=== PATIENT | male | born 1970 | race Two or more races ===

== ENCOUNTER 2018-06-17 23:32 | Emergency (ER) | payer MEDICAID ==
[~2018-06-17] VITALS: Ht 172.7 cm; Wt 68.0 kg
--- NOTE | 2018-06-17 23:37 | NUR ---
ED Nurse Note: Patient felipatiburcio RA 30 from the [facility] c/o 11/20 generalized body pain for 3 weeks, patient reports nausea. AO4. NAD. VSS
[2018-06-17 23:39] VITALS: BP 142/88
[2018-06-17 23:45] VITALS: BP 142/88
--- NOTE | 2018-06-17 23:45 | NUR ---
Homeless Discharge: Patient is being discharged from medical care. Awake, alert and oriented x4. After care instructions, including referral to community resources were given; PATIENT REFUSED. Patient verbalized understanding of After care instructions; PATIENT REFUSED AND LEFT WITHOUT DISCHARGE PAPERS. ID BAND REMOVED. OFFERED FOODAND WATER; PATIENT REFUSED. OFFERED TRANSPORTATION TO DESTINATION; PATIENT REFUSED TO DISCLOSE LOCATION AND. Patient ambulated out with all personal belongings with steady gait.
--- NOTE | 2018-06-17 23:58 | Emergency Room Report ---
History of Present Illness General Chief Complaint: Pain Source: Patient Present Illness HPI Is a 47-year-old male with no significant past medical history. He presents with chief complaint of body pain. This is a chronic problem going for months. He has been to multiple ERs for this. He was at [facility] a couple days ago. He said they ran tests and everything was normal. He was given pain medication. He called 911 because body pain. Pain is 10 out of 10. He said that his pain is secondary to radiation. He did not have any cancer history or undergo chemotherapy or radiation. Denies any other complaint. Nothing made it better. Nothing made it worse. Allergies: Coded Allergies: No Known Allergies (Unverified , 06/17/18) Patient History Past Medical History: see triage record, old chart reviewed Past Surgical History: none Pertinent Family History: none Social History: Denies: smoking Immunizations: other Reviewed Nursing Documentation: PMH: Agreed; PSxH: Agreed Nursing Documentation-PMH Past Medical History: No Stated History Review of Systems Eye: Denies: eye pain, blurred vision ENT: Denies: ear pain, nose congestion, throat swelling Respiratory: Denies: cough, shortness of breath Cardiovascular: Denies: chest pain, palpitations Gastrointestinal: Denies: abdominal pain, diarrhea, nausea, vomiting Musculoskeletal: Denies: back pain, joint pain Skin: Denies: rash Neurological: Denies: headache, numbness Endocrine: Denies: increased thirst, increased urine Hematologic/Lymphatic: Denies: easy bruising All Other Systems: negative except mentioned in HPI Physical Exam Vital Signs Date Time Temp Pulse Resp B/P (MAP) Pulse Ox O2 Delivery O2 Flow Rate FiO2 06/17/18 23:32 98.6 84 18 99 Room Air 06/17/18 23:39 142/88 vitals normal Sp02 EP Interpretation: reviewed, normal General Appearance: well appearing, no apparent distress, alert Head: normocephalic, atraumatic Eyes: bilateral eye PERRL, bilateral eye EOMI ENT: hearing grossly normal, normal pharynx Neck: full range of motion, supple, no meningismus Respiratory: chest non-tender, lungs clear, normal breath sounds Cardiovascular #1: regular rate, rhythm, no murmur Gastrointestinal: normal bowel sounds, non tender, no mass, no organomegaly, no bruit, non-distended Musculoskeletal: back normal, gait/station normal, normal range of motion Psychiatric: mood/affect normal Skin: warm/dry Medical Decision Making Diagnostic Impression: Primary Impression: Pain ER Course Patient resents with chronic pain. I see no need for any workup. Patient is asking for x-rays and CT scans. Explained to him that is with give him more radiation. He arty had but work done x-ray done 2 days ago. I see no need to repeat. Patient was not happy with this and got up and left. Last Vital Signs Date Time Temp Pulse Resp B/P (MAP) Pulse Ox O2 Delivery O2 Flow Rate FiO2 06/17/18 23:39 98.6 84 18 142/88 99 Room Air Status: unchanged Disposition: HOME, SELF-CARE Condition: Stable Scripts No Active Prescriptions or Reported Meds Referrals: NOT CHOSEN IPA/,REFERRING (PCP) Christiano Fisher MD June 17, 2018 23:58
== END 2018-06-17 23:55 | disposition home or self-care (01) ==
LOC: EDBD 23:32 → EMR 23:54
DX: G89.29 Other chronic pain (principal)
CPT/HCPCS: 99281

== ENCOUNTER 2018-06-24 21:33 | Emergency (ER) | payer MEDICAID ==
[~2018-06-24] VITALS: Ht 180.3 cm; Wt 76.7 kg
--- NOTE | 2018-06-24 21:41 | NUR ---
ED Nurse Note: pt brought in by [facility] from [facility] c/o dizziness and neck pain, pt reports he has been having problems for three days, states he has illness. Per ems report, pt has hx dm but noncompliant with medication. BS 125 at the bedside. pt AA&ox4, gcs=15, skin warm and dry, resp even and unlabored on RA, -n/v/d, ambulates w/ steady gait, vss, NSR on desk monitor. pt homeless, pt refused to do minicog.
[2018-06-24 21:42] VITALS: BP 140/92
--- NOTE | 2018-06-24 21:49 | Emergency Room Report ---
History of Present Illness General Chief Complaint: Dizziness Source: Patient Present Illness HPI Is a 47-year-old male who is homeless. He presents with chief complaint of dizziness. He said that his been drinking and "passed out. No trauma. [place] the [place] 911. EMS said he got up and walked to the [place] without any difficulty. I saw this patient last week. He complaining of multiple elements. Said that his whole body hurts. 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 Denies any focal deficit. No nausea no vomiting. No fever chills. Denies any other complaint. Allergies: Coded Allergies: No Known Allergies (Unverified , 06/24/18) Patient History Past Medical History: see triage record, old chart reviewed Past Surgical History: none Pertinent Family History: none Social History: Reports: alcohol use; Denies: smoking Immunizations: other Reviewed Nursing Documentation: PMH: Agreed; PSxH: Agreed Nursing Documentation-PMH Hx Hypertension: Yes Hx Diabetes: Yes Review of Systems Eye: Denies: eye pain, blurred vision ENT: Denies: ear pain, nose congestion, throat swelling Respiratory: Denies: cough, shortness of breath Cardiovascular: Denies: chest pain, palpitations Gastrointestinal: Denies: abdominal pain, diarrhea, nausea, vomiting Musculoskeletal: Denies: back pain, joint pain Skin: Denies: rash Neurological: Reports: dizziness; Denies: headache, numbness Endocrine: Denies: increased thirst, increased urine Hematologic/Lymphatic: Denies: easy bruising All Other Systems: negative except mentioned in HPI Physical Exam Vital Signs Date Time Temp Pulse Resp B/P (MAP) Pulse Ox O2 Delivery O2 Flow Rate FiO2 06/24/18 21:35 98.1 56 16 97 Room Air 06/24/18 21:42 140/92 vitals unremarkable Sp02 EP Interpretation: reviewed, normal General Appearance: well appearing, no apparent distress, alert Head: normocephalic, atraumatic Eyes: bilateral eye PERRL, bilateral eye EOMI ENT: hearing grossly normal, normal pharynx Neck: full range of motion, supple, no meningismus Respiratory: chest non-tender, lungs clear, normal breath sounds Cardiovascular #1: regular rate, rhythm, no murmur Gastrointestinal: normal bowel sounds, non tender, no mass, no organomegaly, no bruit, non-distended Musculoskeletal: back normal, gait/station normal, normal range of motion Psychiatric: mood/affect normal Skin: warm/dry Medical Decision Making Diagnostic Impression: Primary Impression: Dizziness of unknown cause ER Course This patient presents with dizziness. No focal deficit. He is walking around without any difficulty. We'll discharge home. Rhythm Strip Diag. Results EP Interpretation: yes Rate: 67 Rhythm: NSR, no PVC's, no ectopy, other Last Vital Signs Date Time Temp Pulse Resp B/P (MAP) Pulse Ox O2 Delivery O2 Flow Rate FiO2 06/24/18 21:42 68 16 Room Air 06/24/18 21:42 98.1 140/92 99 Status: improved Disposition: HOME, SELF-CARE Condition: Stable Patient Instructions: Dizziness Additional Instructions: Abstain from alcohol and drugs. Follow-up with your doctor in 7 days. Return if worse. Christiano Fisher MD June 24, 2018 21:49
[2018-06-24 22:28] LABS: BASOPHILS % (AUTO) 1.6 % (0.0-2.0); EOSINOPHILS % (AUTO) 5.9 % (0.0-3.0); HEMATOCRIT 37.4 % (42.0-52.0); HEMOGLOBIN 13.1 G/DL (14.2-18.0); LYMPHOCYTES % (AUTO) 37.4 % (20.0-45.0); MEAN CORPUSCULAR VOLUME 86 FL (80-99); MONOCYTES % (AUTO) 7.7 % (1.0-10.0); NEUTROPHILS % (AUTO) 47.5 % (45.0-75.0); PLATELET COUNT 284 K/UL (150-450); RED BLOOD COUNT 4.36 M/UL (4.70-6.10); RED CELL DISTRIBUTION WIDTH 11.9 % (11.6-14.8); WHITE BLOOD COUNT 6.4 K/UL (4.8-10.8)
[2018-06-24 22:40] LABS: ANION GAP 4 mmol/L (5-15); BLOOD UREA NITROGEN 20 mg/dL (7-18); CARBON DIOXIDE 29 MMOL/L (21-32); CHLORIDE 105 MMOL/L (98-107); CREATININE 0.8 MG/DL (0.55-1.30); POTASSIUM 3.2 MMOL/L (3.5-5.1); SODIUM 138 MMOL/L (136-145)
[2018-06-24 22:52] VITALS: BP 128/58
--- NOTE | 2018-06-24 22:52 | NUR ---
ED Nurse Note: pt is cleared to be d/c per ERMD, pt discharge and after care instruction provided, pt discharge done by RN Bisi, per RN statement, pt iv d/c and id band removed, pt refused to state where he is going but left w/ all belongings. pt refused the information of shelters. pt independent, able to care for himself.
== END 2018-06-24 22:52 | disposition home or self-care (01) ==
LOC: EDBD 21:33 → EMR 22:00
DX: R42 Dizziness and giddiness (principal); I10 Essential (primary) hypertension; E11.9 Type 2 diabetes mellitus without complications
CPT/HCPCS: 36415; 80048; 80329; 85025; 96360; 99284

== ENCOUNTER 2019-11-02 23:23 | Emergency (ER) | payer MEDICAID, OTHER ==
[~2019-11-02] VITALS: Ht 180.3 cm; Wt 72.6 kg
--- NOTE | 2019-11-02 23:28 | NUR ---
not in waiting room
--- NOTE | 2019-11-02 23:41 | NUR ---
called again, not in waiting room
--- NOTE | 2019-11-02 23:57 | NUR ---
ED Nurse Note: Patient stepped out of waiting room again.
[2019-11-03 00:10] VITALS: BP 125/82
--- NOTE | 2019-11-03 00:10 | NUR ---
ED Nurse Note: Patient walked into ED c/o abdominal pressure onset for the past couple days now. patient denies any nausea,vomiting or diarrhea. states that he felt like he strained it. rates his pain a 8/10 pressure like pain, patient is alert and oriented x4, ambulatory with a steady gait. at time fo examination patient is laying down and asked for a sandwich. patient provided with sandwich and was given fluids. will wait for further orders
[2019-11-03] MEDS ORDERED: Acetaminophen 500mg (ES) tab ORAL ONE (00:15)
[2019-11-03] MEDS ORDERED: ACETAMINOPHEN500 M3 ORAL (00:16)
--- NOTE | 2019-11-03 00:16 | Emergency Room Report ---
History of Present Illness General Chief Complaint: Abdominal Pain Source: Patient, Medical Record Present Illness HPI This a 48-year-old male with no significant past medical history. He presents with chief complaint of abdominal pain. Patient said that he was jumping to prevent something from falling and felt pain in his right abdominal area. This occurred 24 hours ago. He denies any other trauma. No fever chills. Worse with palpation. Better with rest. Pain is 8 out of 10. Denies any other complaint. It took him a while to come back from the room because he keeps going in and out. Patient has stickers gil on his body. He said he was at [facility] yesterday for COVID testing. He did not mention this pain to the doctor there. 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 Patient History Past Medical History: see triage record, old chart reviewed Past Surgical History: none Pertinent Family History: none Social History: Reports: smoking Immunizations: other Reviewed Nursing Documentation: PMH: Agreed; PSxH: Agreed Nursing Documentation-PMH Past Medical History: No History, Except For Hx Hypertension: Yes Hx Diabetes: Yes Hx Neurological Problems: Yes - migraines Review of Systems Eye: Denies: eye pain, blurred vision ENT: Denies: ear pain, nose congestion, throat swelling Respiratory: Denies: cough, shortness of breath Cardiovascular: Denies: chest pain, palpitations Gastrointestinal: Reports: abdominal pain; Denies: diarrhea, nausea, vomiting Musculoskeletal: Denies: back pain, joint pain Skin: Denies: rash Neurological: Denies: headache, numbness Endocrine: Denies: increased thirst, increased urine Hematologic/Lymphatic: Denies: easy bruising All Other Systems: negative except mentioned in HPI Physical Exam Vital Signs Date Time Temp Pulse Resp B/P (MAP) Pulse Ox O2 Delivery O2 Flow Rate FiO2 11/02/19 23:58 98.1 82 16 134/86 (102) 95 Room Air Vitals normal Sp02 EP Interpretation: reviewed, normal General Appearance: well appearing, no apparent distress, alert Head: normocephalic, atraumatic Eyes: bilateral eye PERRL, bilateral eye EOMI ENT: hearing grossly normal, normal pharynx Neck: full range of motion, supple, no meningismus Respiratory: chest non-tender, lungs clear, normal breath sounds Cardiovascular #1: regular rate, rhythm, no murmur Gastrointestinal: normal bowel sounds, no mass, no organomegaly, no bruit, non- distended, tenderness - Initially he has no pain when I was distracting him. Then he had some mild pain to the right lateral rectus muscle. Musculoskeletal: back normal, normal range of motion, gait/station normal Psychiatric: mood/affect normal Medical Decision Making Homeless Attestation I, The treating physician, Dr Christiano Fisher, has assessed and agrees that patient is medically stable for discharge to an outpatient disposition. Diagnostic Impression: Primary Impression: Abdominal muscle strain Qualified Codes: S39.011A - Strain of muscle, fascia and tendon of abdomen, initial encounter ER Course This patient presents with a strain of his abdominal wall muscle. No acute abdomen. Will discharge home. Last Vital Signs Date Time Temp Pulse Resp B/P (MAP) Pulse Ox O2 Delivery O2 Flow Rate FiO2 11/02/19 23:58 98.1 82 16 134/86 (102) 95 Room Air Status: improved Disposition: HOME, SELF-CARE Condition: Stable Scripts Acetaminophen* (ACETAMINOPHEN EXTRA STRENGTH*) 500 Mg Tablet 500 MG ORAL Q8H PRN for Fever/Headache/Mild Pain, #30 TAB Prov: Christiano Fisher MD 11/03/19 Additional Instructions: Follow-up with your doctor in 7 days. Return if worse. Christiano Fisher MD Nov 03, 2019 00:16
[2019-11-03 00:20] VITALS: BP 128/72
--- NOTE | 2019-11-03 00:20 | NUR ---
Homeless Discharge: Patient is being discharged from medical care. Awake, alert and oriented x4. After care instructions, including referral to community resources were given. Patient verbalized understanding of After care instructions; at this time patient does not request medications, equipment or placement. Patient signed patient consent in the medical record for patient destination upon discharge. All medical devices such as ID band were removed. Patient ambulated out with all personal belongings with steady gait. patient provided with meal and fluids. patient does have adequate clothing for weather. patient also refused transport
== END 2019-11-03 00:20 | disposition home or self-care (01) ==
LOC: EMR 11-03 00:15
DX: S39.011A Strain of muscle, fascia and tendon of abdomen, initial encounter (principal); X58.XXXA Exposure to other specified factors, initial encounter; Y92.9 Unspecified place or not applicable; Z88.8 Allergy status to other drugs, medicaments and biological substances; E11.9 Type 2 diabetes mellitus without complications; I10 Essential (primary) hypertension
CPT/HCPCS: 99281